=== PATIENT | male | born 1985 | race Caucasian/White ===

== ENCOUNTER 2023-06-14 16:00 | Emergency (ER) | payer BC, OTHER ==
[2023-06-14 16:45] LABS: BASOPHILS # (AUTO) 0.1 10^3/uL (0.0-0.1); BASOPHILS % (AUTO) 0.4 %; EOSINOPHILS # (AUTO) 0.1 10^3/uL (0.0-0.7); EOSINOPHILS % (AUTO) 0.6 %; HCT - HEMATOCRIT 45.6 % (42.0-52.0); HGB - HEMOGLOBIN 15.3 g/dL (14.0-18.0); LYMPHOCYTES # (AUTO) 1.1 10^3/uL (1.5-3.5); LYMPHOCYTES % (AUTO) 8.5 %; MEAN CORPUSCULAR HEMOGLOBIN 30.3 pg (27.0-31.0); MEAN CORPUSCULAR HGB CONC 33.6 g/dL (32.0-36.0); MEAN CORPUSCULAR VOLUME 90.3 fL (80.0-94.0); MEAN PLATELET VOLUME 10.2 fL (7.4-11.4); MONOCYTES # (AUTO) 0.4 10^3/uL (0.0-1.0); MONOCYTES % (AUTO) 3.4 %; NEUTROPHILS # (AUTO) 10.9 10^3/uL (1.5-6.6); NEUTROPHILS % (AUTO) 86.8 %; PLT - PLATELET COUNT 308 10^3/uL (130-450); RED BLOOD COUNT 5.05 10^6/uL (4.70-6.10); RED CELL DISTRIBUTION WIDTH 12.8 % (12.0-15.0); WHITE BLOOD COUNT 12.6 x10^3/uL (4.8-10.8)
--- NOTE | 2023-06-14 16:45 | XRAY Report ---
PROCEDURE: Chest 1V INDICATIONS: Chest pain TECHNIQUE: One view of the chest was acquired. COMPARISON: None. FINDINGS: Surgical changes and devices: None. Lungs and pleura: No pleural effusions or pneumothorax. Lungs are clear. Mediastinum: Mediastinal contours appear normal. Heart size is normal. Bones and chest wall: No suspicious bony lesions. Overlying soft tissues appear unremarkable. IMPRESSION: No acute cardiopulmonary process. Reviewed by: Aurelia Schafer MD on 06/14/2023 4:44 PM PDT Approved by: Aurelia Schafer MD on 06/14/2023 4:44 PM PDT Station ID: [id number]
[2023-06-14 16:58] LABS: LIPASE 30 U/L (11-82)
[2023-06-14 17:01] LABS: ALBUMIN 5.4 g/dL (3.2-5.5); ALBUMIN/GLOBULIN RATIO 1.8 (1.0-2.2); ALKALINE PHOSPHATASE 56 IU/L (42-121); ALT ALANINE AMINOTRANSFERASE 16 IU/L (10-60); AST ASPARTATE AMINOTRANSFERASE 19 IU/L (10-42); BILIRUBIN,TOTAL 1.4 mg/dL (0.2-1.0); BUN - BLOOD UREA NITROGEN 10 mg/dL (6-20); CALCIUM 11.6 mg/dL (8.5-10.3); CARBON DIOXIDE - CO2 23 mmol/L (21-32); CHLORIDE 101 mmol/L (101-111); GFR - MDRD 84 (>89); GLUCOSE 135 mg/dL (74-104); POTASSIUM 3.2 mmol/L (3.5-4.5); SODIUM 140 mmol/L (135-145); TOTAL PROTEIN 8.4 g/dL (6.4-8.9); TROPONIN I HIGH SENSITIVITY < 2.3 ng/L (2.3-19.7)
--- NOTE | 2023-06-14 17:08 | ED Physician Documentation ---
History of Present Illness - Stated complaint Stated Complaint: SOA/NUMBNESS - Chief complaint Chief Complaint: General - History obtained from History obtained from: Patient - History of Present Illness Timing: How many weeks ago Pain level max: 5 Pain level now: 2 - Additonal information Additional information: Patient is a 37-year-old male who presents to the emergency department with right lower quadrant abdominal pain/periumbilical pain for the past 2 weeks. Sometimes that will last all day, sometimes a few hours. Seems to be worse after eating. Nothing really makes it better. He states it just goes away. No nausea, no vomiting. No diarrhea that is abnormal for him. He states he has "amorphous GI issues". Review of Systems Constitutional: denies: Fever, Chills Nose: denies: Rhinorrhea / runny nose, Congestion Cardiac: denies: Chest pain / pressure Respiratory: denies: Dyspnea, Cough GI: denies: Hematemesis, Bloody / black stool Skin: denies: Rash Musculoskeletal: denies: Neck pain, Back pain Neurologic: denies: Focal weakness, Numbness, Headache PD PAST MEDICAL HISTORY - Past Medical History Past Medical History: Yes Psych: Anxiety - Past Surgical History Past Surgical History: Yes General: Hiatal hernia repair - Present Medications Home Medications: Ambulatory Orders Medication Instructions Recorded Confirmed Finasteride [Propecia] 1 mg PO DAILY 06/14/23 06/14/23 - Allergies Allergies/Adverse Reactions: Allergies Allergy/AdvReac Type Severity Reaction Status Date / Time No Known Drug Allergies Allergy Verified 06/14/23 16:14 - Social History Does the pt smoke?: No Smoking Status: Never smoker Does the pt drink ETOH?: Yes Does the pt have substance abuse?: No PD ED PE NORMAL - Vitals Vital signs reviewed: Yes - General General: Alert and oriented X 3, No acute distress - HEENT HEENT: PERRL, Moist mucous membranes - Neck Neck: Supple, no meningeal sign - Cardiac Cardiac: RRR - Respiratory Respiratory: No respiratory distress, Clear bilaterally - Abdomen Abdomen: Soft, Non distended, Other (Tender to palpation suprapubic. No peritoneal signs. Negative Espitia sign, negative obturator, negative Rovsing. No tenderness at Irwin's point) - Back Back: No CVA TTP, No spinal TTP - Derm Derm: Warm and dry - Extremities Extremities: No edema - Neuro Neuro: Alert and oriented X 3 - Psych Psych: Normal mood, Normal affect Results - Vitals Vitals: Vital Signs - 24 hr 06/14/23 06/14/23 06/14/23 16:08 19:54 19:55 Temperature 36 C L Heart Rate 79 80 76 Respiratory 20 15 16 Rate Blood Pressure 127/71 134/80 H 134/80 H O2 Saturation 100 98 98 Oxygen O2 Source Room air - EKG (time done) 1620 EKG releavant findings:: EKG personally interpreted by author of this note. Relevant findings are: Rate: Rate (enter#) (68) Rhythm: NSR [place]: Normal Intervals: Normal [place] QRS: Normal Ischemia: Normal ST segments - Labs Labs: Laboratory Tests 06/14/23 06/14/23 06/14/23 16:32 16:32 17:03 WBC 12.6 H RBC 5.05 Hgb 15.3 Hct 45.6 MCV 90.3 MCH 30.3 MCHC 33.6 RDW 12.8 Plt Count 308 MPV 10.2 Neut # (Auto) 10.9 H Lymph # (Auto) 1.1 L [place] # (Auto) 0.4 Eos # (Auto) 0.1 Baso # (Auto) 0.1 Absolute Nucleated RBC 0.00 Nucleated RBC % 0.0 Sodium 140 Potassium 3.2 L Chloride 101 Carbon Dioxide 23 Anion Gap 16.0 H BUN 10 Creatinine 1.0 Estimated GFR (MDRD) 84 L Glucose 135 H Calcium 11.6 H Total Bilirubin 1.4 H AST 19 ALT 16 Alkaline Phosphatase 56 Troponin I High Sens < 2.3 L Total Protein 8.4 Albumin 5.4 Globulin 3.0 Albumin/Globulin Ratio 1.8 Lipase 30 Urine Color YELLOW Urine Clarity CLEAR Urine pH 8.5 H Ur Specific [place] 1.015 Urine Protein NEGATIVE Urine Glucose (UA) NEGATIVE Urine Ketones >=80 H Urine Occult Blood NEGATIVE Urine Nitrite NEGATIVE Urine Bilirubin NEGATIVE Urine Urobilinogen 0.2 (NORMAL) Ur Leukocyte Esterase NEGATIVE Ur Microscopic Review NOT INDICATED Urine Culture Comments NOT INDICATED - Rads (name of study) CT abdomen pelvis Relevant Findings:: Final report received, See rad report cxr Relevant Findings:: Final report received, See rad report PD Medical Decision Making - ED course Complexity details: reviewed results, re-evaluated patient, considered differential, d/w patient ED course: 37-year-old male with abdominal pain of unclear etiology. Well-appearing, nontoxic. Afebrile. No significant lab abnormalities other than mild hypokalemia and mild hypercalcemia. He is not sure if he has ever had issues with his calcium in the past. Recommend he have these lab values rechecked with his doctor next week and if they are still abnormal can receive further workup at that time. Tolerating p.o. without difficulty here. No chest pain here. No shortness of breath. No fevers. No chills. No cough. No congestion. No vomiting. No acute findings on CT scan. Patient counseled regarding signs and symptoms for which I believe and urgent re-evaluation would be necessary. Patient with good understanding of and agreement to plan and is comfortable going home at this time This document was made in part using voice recognition software. While efforts are made to proofread this document, sound alike and grammatical errors may occur. Departure - Departure Disposition: 01 Home, Self Care Clinical Impression: Abdominal pain Qualifiers: Abdominal location: unspecified location Qualified Code(s): R10.9 - Unspecified abdominal pain Condition: Good Instructions: ED Abdominal Pain Unkn Cause Male Follow-Up: your,doctor in 1 week [Other] Comments: Your potassium is mildly low today at 3.2. Your calcium was high at 11.6. Your calcium and potassium should both be rechecked next week with your doctor. Elevated calcium can cause various GI effects including pain, constipation, etc. If your calcium continues to be elevated your doctor will likely want to work this up further. Forms: PCP List Discharge Date/Time: 06/14/23 19:55
[2023-06-14 17:09] LABS: BILIRUBIN,URINE NEGATIVE (NEGATIVE); GLUCOSE, URINE (UA) NEGATIVE (NEGATIVE); KETONES,URINE (UA) >=80 mg/dL (NEGATIVE); LEUKOCYTE ESTERASE, URINE NEGATIVE (NEGATIVE); NITRITE,URINE NEGATIVE (NEGATIVE); OCCULT BLOOD,URINE NEGATIVE (NEGATIVE); PH,URINE 8.5 PH (5.0-7.5); PROTEIN,URINE NEGATIVE (NEGATIVE); UROBILINOGEN,URINE 0.2 (NORMAL) E.U./dL (NORMAL)
[2023-06-14 17:13] LABS: CLARITY,URINE CLEAR (CLEAR)
[2023-06-14] MEDS ORDERED: iohexoL-300 100 ML VIAL ONE (17:42)
[2023-06-14] MEDS: iohexoL-300 100 ML VIAL IVP ONE (18:41)
--- NOTE | 2023-06-14 18:58 | CT Report ---
PROCEDURE: Abdomen/Pelvis W INDICATIONS: RLQ abd pain x2 weeks CONTRAST: OMNI 300 100ML TECHNIQUE: After the administration of intravenous contrast, a CT scan of the abdomen and pelvis was performed. Images were recorded and evaluated at appropriate window settings. Reformats: coronal and sagittal. F or radiation dose reduction, the following was used: automated exposure control, adjustment of mA and /or kV according to patient size. COMPARISON: None. FINDINGS: Image quality: Diagnostic. Lower chest: Unremarkable. Liver: No solid mass. Gallbladder and biliary tree: No radiopaque stones or wall thickening. No biliary dilation. Spleen: No splenomegaly. Pancreas: No pancreatic ductal dilation. Adrenals: No adrenal nodule. Kidneys and ureters: No hydronephrosis. No renal cystic lesion which requires follow up. No solid mas s. Subcentimeter hypoattenuating lesion in the interpolar region left kidney is most likely benign cy st and does not require dedicated imaging follow-up. Stomach, bowel and peritoneum: No bowel distension. No pathologic free fluid. Normal appendix. Lymph nodes: No central or retroperitoneal adenopathy. Vessels: No infrarenal aortic aneurysm. PELVIS Reproductive organs: Unremarkable. Bladder: No abnormal wall thickening, accounting for underdistention. Pelvic lymph nodes: No pelvic adenopathy by size criteria. Bones: No aggressive osseous abnormality. Probable degenerative changes noted at the lumbosacral junc tion. Presumably large Schmorl's node at the superior endplate of L4. Other: No significant ventral or inguinal hernia. IMPRESSION: No acute abnormality identified in the abdomen or pelvis. Normal appendix. No hydronephrosis. Reviewed by: Cheng Dickerson MD on 06/14/2023 6:56 PM PDT Approved by: Cheng Dickerson MD on 06/14/2023 6:56 PM PDT Station ID: [id number]
[2023-06-14 20:02] VITALS: BP 134/80; O2SAT 98
== END 2023-06-14 19:55 | disposition home or self-care (01) ==
LOC: ED 16:00
DX: R10.31 Right lower quadrant pain (principal); R10.33 Periumbilical pain; E87.6 Hypokalemia; E83.52 Hypercalcemia
CPT/HCPCS: 36415; 71045; 74177; 80053; 81003; 83690; 84484; 85025; 93005; 99284; Q9967; 81001; 87086